=== PATIENT | female | born 1985 | race Caucasian/White ===

== ENCOUNTER → 2016-12-24 | Outpatient (CLI) | payer OTHER ==
[~2016-12-24] MED LIST: FLEXERIL10 MG PO; IMMODIUM; MIRANA; MIRENA BIRTH CONTROL; NO MEDICATIONS
--- NOTE | ~2016-12-24 | US5 ---
[facility] A Service of [facility] RADIOLOGY TEXT RESULTS PATIENT: VLAD SWAIN LOCATION: [facility] : 89 UNIT #: [id number] AGE: [address]: Gina Gurrola SEX: F ORDER DR: [id number] [address] [address] [id number] O MR#: [id number] Acc #: [id number] NAME: VLAD SWAIN : 1985 SEX: F STUDY DATE/TIME: 12/24/2016 10:08 UNIT: SG ROOM: STUDY DESCRIPTION: US Abdominal Complete Attending Physician: Gina Gurrola A.P.R.N. Referring Physician: Gina Gurrola A.P.R.N. Ordering Physician: Gina Gurrola A.P.R.N. Primary Care Physician: Gina Gurrola A.P.R.N. MEDICAL IMAGING REPORT This report is preliminary unless electronic signature is present. EXAM Abdominal ultrasound complete, 12/24/2016. HISTORY Epigastric abdominal pain for 1 year with diarrhea. FINDINGS The liver is homogeneous in echotexture and demonstrates no cystic or solid mass lesions. The intra and extrahepatic bile ducts are not dilated. The gallbladder contains multiple shadowing gallstones but there is no evidence of gallbladder wall thickening or pericholecystic fluid. The common duct measures 4 mm. The pancreas and spleen are normal. The spleen measures 9.9 cm in greatest diameter. The visualized portions of the abdominal aorta and inferior vena cava are within normal limits. The kidneys are normal bilaterally. IMPRESSION Cholelithiasis. Dictated by... Claude Gonzalez M.D. THIS IS AN ELECTRONICALLY VERIFIED REPORT Claude Gonzalez M.D. at 12/25/2016 8:07 AM DEVIN/nima TD: 12/24/2016 12:26 JOB #: [id number] MEDICAL IMAGING REPORT [facility] A Service of [facility] RADIOLOGY TEXT RESULTS PATIENT: VLAD SWAIN LOCATION: [facility] : 87 UNIT #: [id number] AGE: [address]: Gina Gurrola SEX: F ORDER DR: Page 1 of 1
== END | disposition home or self-care (01) ==
LOC: SGUS 12-18 09:00
DX: R10.13 Epigastric pain (principal); K80.20 Calculus of gallbladder without cholecystitis without obstruction
CPT/HCPCS: 76700

== ENCOUNTER 2017-01-08 22:15 | Emergency (ER) | payer OTHER ==
--- NOTE | ~2017-01-08 | CT5 ---
[facility] A Service of [facility] RADIOLOGY TEXT RESULTS PATIENT: VLAD SWAIN LOCATION: SED : 87 UNIT #: [id number] AGE: [address]: PHOENIX CHICAS SEX: F ORDER DR: [id number] [address] [address] [id number] E MR#: [id number] Acc #: [id number] NAME: VLAD SWAIN : 1985 SEX: F STUDY DATE/TIME: 01/09/2017 0:16 UNIT: SED ROOM: STUDY DESCRIPTION: CT Abdomen W Cont Attending Physician: Phoenix Chicas Ordering Physician: Phoenix Chicas Primary Care Physician: Gina Gurrola A.P.R.N. MEDICAL IMAGING REPORT This report is preliminary unless electronic signature is present. EXAM CT abdomen with contrast INDICATION Severe mid abdomen pain radiating to back for 2 days. COMPARISON Abdomen ultrasound from 12/24/2016. TECHNIQUE The patient was given 100 mL of Isovue 370 and axial 5 mm images were obtained through the abdomen and pelvis. This CT examination was performed with one or more of the following radiation dose reduction techniques: automatic exposure control, adjustment of mA and/or kV according to patient size, and iterative reconstruction. FINDINGS The lung bases are clear. The gallbladder contains multiple calcified stones. There are at least 3 stones present measuring up to 17 mm in diameter and 1 stone appears to be lodged in the neck of the gallbladder. There is no biliary distention. The liver is normal. The spleen, pancreas, adrenal glands and kidneys are normal in appearance. The aorta is normal in size. The visualized portion of the uterus shows an IUD and is otherwise normal. The bones are unremarkable. IMPRESSION The patient has 3 calcified gallstones measuring up to 16 or 17 mm in diameter and 1 appears to be lodged in the gallbladder neck. The gallbladder wall is normal and there is no pericholecystic fluid and there is no biliary distention. Otherwise, the study is normal. [facility] A Service of [facility] RADIOLOGY TEXT RESULTS PATIENT: VLAD SWAIN [place] [facility] [place] 89 UNIT #: [id number] AGE: [address]: PHOENIX CHICAS SEX: F ORDER DR: Dictated by... Darin Leigh M.D. THIS IS AN ELECTRONICALLY VERIFIED REPORT aDrin Leigh M.D. at 01/09/2017 1:30 PM JC/david TD: 01/09/2017 08:17 JOB #: [id number] MEDICAL IMAGING REPORT Page 1 of 1
[2017-01-08] MEDS ORDERED: NO MEDICATIONS (22:22)
[2017-01-08] MEDS ORDERED: MIRANA (22:24)
[2017-01-08 23:02] LABS: BASOPHIL% 0.7 % (0-2.5); EOSINOPHIL# 0.3 X10e3 (0-0.7); EOSINOPHIL% 3.8 % (0.0-7.0); HEMATOCRIT 38.7 % (35.0-45.0); HEMOGLOBIN 13.6 gm/dL (12.0-16.0); LYMPHOCYTE# 2.5 X10e3 (1.0-3.5); LYMPHOCYTE% 33.4 % (17.0-45.0); MEAN CELL VOLUME 87.3 FL (83-96); MEAN CORPUSCULAR HEMOGLOBIN 30.7 PG (28-34); MEAN CORPUSCULAR HGB CONC 35.1 g/dL (30-36); MEAN PLATELET VOLUME 6.9 FL (6.5-11.5); MONOCYTE# 0.4 X10e3 (0-1.0); MONOCYTE% 5.2 % (3.0-12.0); NEUTROPHIL# 4.3 X10e3 (1.5-7.1); NEUTROPHIL% 56.9 % (40-75); PLATELET COUNT 307 X10e3 (140-420); RED BLOOD COUNT 4.43 X10e (3.90-5.30); RED CELL DISTRIBUTION WIDTH 12.9 % (11.0-15.5); WHITE BLOOD COUNT 7.5 X10e3 (4.0-10.5)
[2017-01-08 23:04] LABS: DIFF IND NO
[2017-01-08 23:24] LABS: ALKALINE PHOSPHATASE 56 U/L (32-92); ALT (SGPT) 19 U/L (10-40); AMYLASE 32 U/L (0-46); AST (SGOT) 21 U/L (10-42); BILIRUBIN,TOTAL 0.4 mg/dL (0.2-2.0); BLOOD UREA NITROGEN 11 mg/dL (9-23); BUN/CREATININE RATIO 15.71; CALCIUM SERUM 9.8 mg/dL (8.4-10.2); CARBON DIOXIDE 25 mmol/L (22-31); CHLORIDE 104 mmol/L (100-111); CREATININE SERUM 0.7 mg/dL (0.6-1.4); GLOM FILT RATE Estimated 117.1 mL/min (>60); GLUCOSE FASTING 95 mg/dL (70-110); LIPASE 47 U/L (22-51); POTASSIUM 3.6 mmol/L (3.5-5.1); PROTEIN TOTAL SERUM 8.1 g/dL (6.0-8.3); SODIUM 137 mmol/L (135-145)
[2017-01-08 23:25] LABS: BILIRUBIN, DIRECT <0.1 mg/dL (0.0-0.2); BILIRUBIN,INDIRECT 0.3 mg/dL (0.0-0.9)
[2017-01-08 23:44] LABS: URINE SOURCE CLEAN CATCH
[2017-01-08 23:46] LABS: URINE APPEARANCE HAZY; URINE BILIRUBIN NEG (NEG); URINE BLOOD 1+ (NEG); URINE COLOR YELLOW; URINE GLUCOSE NEG (NORM); URINE KETONE NEG (NEG); URINE LEUKOCYTE ESTERASE TRACE (NEG); URINE NITRATE NEG (NEG); URINE PH 8.5 (5-8); URINE PROTEIN NEG (NEG); URINE UROBILINOGEN 0.2 MG/DL (NORM)
[2017-01-08 23:48] LABS: MICRO INDICATED? YES
[2017-01-08 23:53] LABS: CULTURE INDICATED? YES; URINE BACTERIA 1+ (NEG); URINE MUCUS PRESENT; URINE SQUAMOUS EPITHELIAL CELL MANY /[HPF]; URINE TRANSITIONAL EPI CELLS OCCAS /[HPF]
[2017-01-18] MEDS ORDERED: MIRENA BIRTH CONTROL (13:27)
[2017-01-18] MEDS ORDERED: FLEXERIL10 MG PO (13:27)
[2017-01-18] MEDS ORDERED: IMMODIUM (13:28)
== END 2017-01-09 01:22 | disposition home or self-care (01) ==
LOC: SED 22:15
PROVIDERS: Physician Assistant
DX: K80.70 Calculus of gallbladder and bile duct without cholecystitis without obstruction (principal); N30.00 Acute cystitis without hematuria; F17.210 Nicotine dependence, cigarettes, uncomplicated
CPT/HCPCS: 36415; 74160; 80048; 80076; 81003; 82150; 83690; 84703; 85025; 87086; 96361; 96374; 96375; 99284; J2270; J2405; Q9967

== ENCOUNTER → 2017-01-20 | Day surgery (SDC) | payer OTHER ==
--- NOTE | ~2017-01-20 | OR ---
Unit #: [id number] #: [id number] Patient: VLAD SWAIN [id number] [address] [place], [place] [address] [id number] O MR#: [id number] NAME: VLAD SWAIN ROOM: Date of Procedure: 01/20/2017 Admission Date: 01/20/2017 Surgeon: Zaid Christie III, M.D. : 1985 Attending Physician: Zaid Christie III, M.D. Primary Care Physician: Gina Gurrola A.P.R.N. OPERATIVE REPORT PREOPERATIVE DIAGNOSIS Symptomatic cholelithiasis. POSTOPERATIVE DIAGNOSIS Symptomatic cholelithiasis. PROCEDURE PERFORMED Laparoscopic cholecystectomy. AUTOMOTIVE DESIGNER Srinivas Ye M.D. SPECIMENS Gallbladder to Pathology. COMPLICATIONS None apparent. ESTIMATED BLOOD LOSS Minimal. INDICATIONS FOR PROCEDURE This is a 31-year-old lady, who presented with some right upper quadrant pain and had gallstones found on imaging. She is here today for laparoscopic cholecystectomy. DESCRIPTION OF PROCEDURE After consent was obtained, the patient was brought to the operating room and placed in the supine position. General anesthetic was administered and her abdomen was prepped and draped in standard surgical fashion. I made a 5-mm incision in the right upper quadrant. I used an Optiview to enter into the peritoneal cavity without any difficulty. CO2 pneumoperitoneum was then established. Next, a second 5-mm port was placed in the infraumbilical region and an 11-mm port was placed in the midepigastric region and a third 5-mm port was placed in the right lateral subcostal region. I began by retracting the gallbladder superiorly and laterally. I dissected out the cystic duct and cystic artery and after these were carefully identified, I placed two clips proximally and one clip distally along both structures and then they were divided. The gallbladder was then taken off the liver bed using the hook cautery without any spillage of bile. I then extracted the gallbladder through the epigastric port site after dilating the fascia to accommodate the Unit #: [id number] #: [id number] Patient: VLAD SWAIN large stones. I then had excellent hemostasis and all needle, sponge, and instrument counts were correct x2. I used a neoClose device to reapproximate the fascia at the epigastric port site. Trocars were removed and pneumoperitoneum was then released. I injected all the port sites with 0.25% plain Marcaine. I reapproximated the skin edges with interrupted 4-0 Vicryl subcuticular suture. Steri-Strips were then applied. The patient tolerated the procedure without any problems and returned to the recovery room in stable condition. Dictated by... Zaid Christie III, M.D. VCL/kathie TD: 01/20/2017 16:58 JOB #: [id number] OPERATIVE REPORT Page 1 of 1 X Zaid Christie III, MD PROCEDURE OPERATIVE NOTE
== END | disposition home or self-care (01) ==
LOC: CSUR 06:35
DX: K80.10 Calculus of gallbladder with chronic cholecystitis without obstruction (principal); F41.9 Anxiety disorder, unspecified; F17.210 Nicotine dependence, cigarettes, uncomplicated; Z87.440 Personal history of urinary (tract) infections; Z79.899 Other long term (current) drug therapy; Z98.890 Other specified postprocedural states
CPT/HCPCS: 84703; 88304; J0330; J0690; J1100; J1644; J2250; J2405; J3010